=== PATIENT | female | born 1985 | race Hispanic/Latino ===

== ENCOUNTER 2022-02-20 20:09 | Emergency (ER) | payer OTHER ==
[~2022-02-20] VITALS: Ht 160 cm; Wt 68.0 kg
[2022-02-20] MEDS ORDERED: PRENATAL + DHA1 EAC1 PO (20:32)
[2022-02-20] MEDS ORDERED: SERTRALINE HCL25 MG PO (20:32)
== END 2022-02-20 23:00 | disposition home or self-care (01) ==
LOC: ED 20:09
DX: O72.1 Other immediate postpartum hemorrhage (principal)
CPT/HCPCS: 36415; 76856; 80048; 81001; 85025; 99284-25; J7030

== ENCOUNTER 2024-08-05 17:42 | Emergency (ER) | payer OTHER ==
[~2024-08-05] VITALS: Ht 160 cm; Wt 75.5 kg
[~2024-08-05 17:42] MED LIST: PRENATAL + DHA1 EAC1 PO; SERTRALINE HCL25 MG PO
[2024-08-05 18:47] LABS: INFLUENZA B NAA NEGATIVE (NEGATIVE); RESPIRATORY SYNCYTIAL VIR NAA NEGATIVE (NEGATIVE)
[2024-08-05] MEDS ORDERED: TYLENOL325 MG PO (20:13)
[2024-08-05] MEDS ORDERED: CYCLOBENZAPRINE HCL 10 MG HOME.PACK PO ONE (20:15)
[2024-08-05] MEDS ORDERED: OSELTAMIVIR PHOSPHATE 75 MG HOME.PACK PO ONE (20:15)
[2024-08-05] MEDS ORDERED: ONDANSETRON 4 MG HOME.PACK SL ONE (20:15)
[2024-08-05] MEDS ORDERED: CYCLOBENZAPRINE10 MG PO (20:43)
[2024-08-05] MEDS ORDERED: ONDANSETRON ODT8 MG PO (20:43)
[2024-08-05 20:53] VITALS: BP 132/75
== END 2024-08-05 20:59 | disposition home or self-care (01) ==
LOC: ED 17:42
PROVIDERS: Emergency Medicine
DX: O99.511 Diseases of the respiratory system complicating pregnancy, first trimester (principal); J10.1 Influenza due to other identified influenza virus with other respiratory manifestations; Z3A.10 10 weeks gestation of pregnancy; Z79.899 Other long term (current) drug therapy
CPT/HCPCS: 87502; 99283; A9270; U0002